=== PATIENT | male | born 1995 | race Caucasian/White ===

== ENCOUNTER 2021-03-23 21:16 | Emergency (ER) | payer OTHER ==
[~2021-03-23] VITALS: Ht 180.3 cm; Wt 58.2 kg
[2021-03-23 21:30] VITALS: BP 112/66
--- NOTE | 2021-03-23 22:36 | PHYS DOC ---
Adult General Chief Complaint Chief Complaint: TESTICULAR PAIN OR INJURY [facility] HPI Patient is an otherwise healthy 26-year-old male who presents with about 2 hours of onset of bilateral testicular aching and some numbness and tingling, 5 out of 10, with no radiation and no associated nausea, vomiting, diarrhea. Denies any penile discharge, pain, genital lesions or history of STIs. Denies any recent traumas, illnesses, fevers, chest pain, shortness of breath, abdominal pain. Review of Systems Review of Systems Review of systems otherwise unremarkable except noted in HPI Physical Exam Physical Exam Constitutional: Well developed, well nourished, no acute distress, non-toxic appearance. [] HENT: Normocephalic, atraumatic, bilateral external ears normal, oropharynx moist, no oral exudates, nose normal. [] Eyes: conjunctiva normal, no discharge. [] Cardiovascular:Heart rate regular rhythm, no murmur [] Lungs & Thorax: Bilateral breath sounds clear to auscultation [] Abdomen: soft, no tenderness, no masses, no pulsatile masses. : Normal circumcised penis, no obvious deformities or lesions on the penis or scrotum, currently no tenderness on palpation Skin: Warm, dry, no erythema, no rash. [] Back: no CVA tenderness. [] Extremities: No tenderness, ROM intact, no edema. [] Neurologic: Alert and oriented X 3, no focal deficits noted. [] Psychologic: Affect normal, mood normal. [] EKG EKG [] Radiology/Procedures Radiology/Procedures [] EXAM: SCROTAL SONOGRAM WITH DOPPLER. HISTORY: Testicular pain. COMPARISON: None. FINDINGS: Grayscale and Doppler analysis of the scrotum and contents was performed. The right testicle measures 4.3 x 3.6 x 1.8 cm. The parenchyma is homogeneous without focal lesions. The epididymis appears normal. Internal flow is normal. There is no hydrocele. The left testicle measures 4.1 x 3.3 x 1.7 cm. The parenchyma is homogeneous without focal lesions. The epididymis appears normal. Internal flow is normal. There is no hydrocele. IMPRESSION: 1. No abnormality is identified sonographically. Electronically signed by: Sai Gonzáles MD (03/24/2021 1:03 AM) [facility] Heart Score C/O Chest Pain: No Risk Factors: Risk Factors: DM, Current or recent (<one month) smoker, HTN, HLP, family history of CAD, obesity. Risk Scores: Risk Factors: DM, Current or recent (<one month) smoker, HTN, HLP, family history of CAD, obesity. Course & Med Decision Making Course & Med Decision Making Patient is a 26-year-old male who presents to the emergency department with a chief complaint of testicular tingling, numbness and aching earlier in the day Vital signs not concerning. Physical exam noted above. Patient denies need for pain medicine at this time as currently he is not having symptoms. Ultrasound normal. Urinalysis pending, and patient wanted to be discharged home as he stated he had something to do and if there was an issue that needed to be addressed with his urine to please call him and let them know. Advised to follow-up as soon as he can with his primary care physician. Gave return precautions to the ED. Patient grateful, verbalized understanding and agreed with plan of discharge. [] Dragon Disclaimer Dragon Disclaimer This electronic medical record was generated, in whole or in part, using a voice recognition dictation system. Departure Departure: Impression: Primary Impression: Testicle pain Disposition: HOME / SELF CARE / HOMELESS Condition: GOOD Referrals: PCP,UNKNOWN (PCP) ANN BERGMAN MD Patient Instructions: Testicular Problems and Self-Exam Additional Instructions: Thank you for coming to the emergency department tonight and allowing us to take care of you. Please read all the attached information carefully to go back over some of the things we discussed. Please follow-up first thing Thursday morning with your primary care physician to discuss your ED visit and set up a follow-up as soon as possible. When you are urinalysis returns if there is an issue that needs to be addressed we will call you and make you aware of any treatment that is needed. Please come back to the ED immediately with new or concerning symptoms as discussed. CONNOR MENDEZ MD Mar 23, 2021 22:36
--- NOTE | 2021-03-24 01:06 | RAD ---
EXAM: SCROTAL SONOGRAM WITH DOPPLER. HISTORY: Testicular pain. COMPARISON: None. FINDINGS: Grayscale and Doppler analysis of the scrotum and contents was performed. The right testicle measures 4.3 x 3.6 x 1.8 cm. The parenchyma is homogeneous without focal lesions. The epididymis appears normal. Internal flow is normal. There is no hydrocele. The left testicle measures 4.1 x 3.3 x 1.7 cm. The parenchyma is homogeneous without focal lesions. T he epididymis appears normal. Internal flow is normal. There is no hydrocele. IMPRESSION: 1. No abnormality is identified sonographically. Electronically signed by: Sai Gonzáles MD (03/24/2021 1:03 AM) [facility]
[2021-03-24 02:51] LABS: BILIRUBIN,URINE SMALL (NEG); CLARITY,URINE HAZY; COLOR,URINE AMBER; GLUCOSE,URINE NEG (NEG); NITRITE,URINE NEG (NEG); UROBILINOGEN,URINE 0.2 mg/dL (0.2 mg/dL)
[2021-03-24 02:52] LABS: BACTERIA,URINE FEW /HPF (0-FEW); RBC,URINE 0 /HPF (0-2); SQUAMOUS EPITHELIAL CELL,UR FEW /LPF; WBC,URINE 0 /HPF (0-4)
== END 2021-03-24 01:30 | disposition home or self-care (01) ==
LOC: ER 21:16
DX: N50.812 Left testicular pain (principal); N50.811 Right testicular pain; Z59.0 Homelessness
CPT/HCPCS: 36415; 76870; 81001; 87491; 87591; 99284